=== PATIENT | female | born 1980 | race Hispanic/Latino ===

== ENCOUNTER 2020-08-05 15:35 | Outpatient (CLI) | payer OTHER ==
--- NOTE | 2020-08-05 16:33 | ULT ---
Obstetric sonogram HISTORY: evaluation. Third trimester gestation. FINDINGS: Multiple transabdominal sonographic views show single intrauterine gestation in cephalic pr esentation. Cervix is closed and 5.1 cm in length. Grade 1 placenta is anterior. Amniotic fluid index 21.5. Three-vessel cord shows a normal insertion. No gross intracranial abnormalities are apparent. Four-ch charissa heart motion at 136 bpm. Spine and kidneys are intact as visualized. Measurements are as follows: Biparietal diameter 34 weeks 4 days Head circumference 34 weeks 5 days Abdominal circumference 32 weeks 6 days Femur length 34 weeks 0 days [place] 73 percentile. Estimated date of delivery based on sonogram 09/15/2020. IMPRESSION : Single viable intrauterine gestation. Estimated gestational age 34 weeks 1 day. Polyhydramnios. MARTY 21.5.
== END 2020-08-05 15:36 | disposition home or self-care (01) ==
LOC: BICULT 15:35
PROVIDERS: ATTEND Nurse Practitioner
DX: O09.93 Supervision of high risk pregnancy, unspecified, third trimester (principal); Z3A.34 34 weeks gestation of pregnancy
CPT/HCPCS: 76805

== ENCOUNTER 2020-09-16 08:08 | Outpatient (CLI) | payer OTHER ==
[2020-09-16 21:24] LABS: SARS-CoV-2 MS2 Positive; SARS-CoV-2 N Gene Negative; SARS-CoV-2 S Gene Negative; SARS-CoV-2 by NAA Not Detected (NotDetected); SARS-CoV-2 orf1ab Negative
== END 2020-09-16 08:09 | disposition home or self-care (01) ==
LOC: LABBT 08:08
PROVIDERS: ATTEND Family Medicine
DX: Z20.828 Contact with and (suspected) exposure to other viral communicable diseases (principal)
CPT/HCPCS: 87635; U0003

== ENCOUNTER 2020-09-20 19:30 | Inpatient (IN) | payer MEDICAID, OTHER, SELFPAY ==
[2020-09-20] MEDS ORDERED: Carboprost 250 MCG/ML AMP IM PRN (21:56)
[2020-09-20] MEDS ORDERED: Diphenoxylate HCl/Atropine Tablet PO PRN (21:56)
[2020-09-20] MEDS ORDERED: Lidocaine 1% (PF) 30 ML VIAL SC PRN (21:56)
[2020-09-20] MEDS ORDERED: Ibuprofen 800 MG TAB PO PRN (21:56)
[2020-09-20] MEDS ORDERED: Misoprostol 100 MCG TAB PO SCH (21:56)
[2020-09-20] MEDS ORDERED: hydrALAZINE 20 MG/ML VIAL SLOW IVP PRN (21:56)
[2020-09-20] MEDS ORDERED: Methylergonovine 0.2 MG/ML VIAL IM PRN (21:56)
[2020-09-20] MEDS ORDERED: Lactated Ringer's 1,000 ML IV SCH (21:56)
[2020-09-20] MEDS ORDERED: NS / Oxytocin 40 units/1000ml 1,000 ML IV PRN (21:56)
[2020-09-20] MEDS ORDERED: HYDROcodone/Acetaminophen 5/325 mg Tablet PO PRN (21:56)
[2020-09-20] MEDS ORDERED: Butorphanol Tartrate 1 MG/ML VIAL SLOW IVP PRN (21:56)
[2020-09-20] MEDS ORDERED: Ondansetron PF 4 MG/2 ML Vial IVP PRN (21:56)
[2020-09-20] MEDS ORDERED: Misoprostol 200 MCG TAB PR PRN (21:56)
[2020-09-20] MEDS ORDERED: Promethazine HCl 25 MG/ML VIAL IM PRN (21:56)
[2020-09-20 21:57] VITALS: BMI 31.1
[2020-09-20 22:25] LABS: Hemoglobin 12.4 g/dL (12.0-16.0); Mean Corpuscular HGB CONC 33.7 g/dL (32.0-36.0); Mean Corpuscular Hemoglobin 30.9 pg (27.0-31.0); Mean Corpuscular Volume 91.7 fL (78.0-98.0); Mean Platelet Volume 9.3 fL (7.4-10.4); Platelet Count 222 thou/uL (130-400); Red Blood Cell (RBC) Count 4.02 mill/uL (4.20-5.40); White Blood Cell (WBC) Count 10.6 thou/uL (4.8-10.8)
[2020-09-20] MEDS ORDERED: NS w/ Oxytocin 30 units 500 ML IV PRN (22:35)
[2020-09-20] MEDS ORDERED: Penicillin G Potassium 5 MILL.UNITS in Sodium Chloride 0.9% 100 ML IVPB SCH (22:45)
[2020-09-20 23:12] LABS: Syphilis Antibody Nonreactive (Nonreactive); Syphilis Antibody Index 0.03 S/CO (<1.00 Non-Reactive)
[2020-09-21 01:46] LABS: HBSAg Index 0.16 S/CO (0-0.99); Hep B Surf Ag Non-Reactive S/CO (NonReactive)
[2020-09-21] MEDS ORDERED: Penicillin G 2.5 MILL.units 2.5 MILL.UNITS in Premix Bag 1 BAG IVPB SCH (03:00)
[2020-09-21] MEDS ORDERED: Ondansetron PF 4 MG/2 ML Vial IVP PRN (04:31)
[2020-09-21] MEDS ORDERED: NS / Oxytocin 40 units/1000ml 1,000 ML IV SCH (04:31)
[2020-09-21] MEDS ORDERED: diphenhydrAMINE 25 MG CAP PO PRN (04:31)
[2020-09-21] MEDS ORDERED: Milk Of Magnesia 30 ML UDCUP PO PRN (04:31)
[2020-09-21] MEDS ORDERED: hydrALAZINE 20 MG/ML VIAL SLOW IVP PRN (04:31)
[2020-09-21] MEDS ORDERED: Bisacodyl 10 MG SUPP PR PRN (04:31)
[2020-09-21] MEDS ORDERED: Promethazine HCl 25 MG/ML VIAL IM PRN (04:31)
[2020-09-21] MEDS ORDERED: Lanolin Ointment 7 GM TUBE TOP PRN (04:31)
[2020-09-21] MEDS ORDERED: Benzocaine-Menthol 82.5 ML CAN TOP PRN (04:31)
[2020-09-21] MEDS ORDERED: HYDROcodone/Acetaminophen 5/325 mg Tablet PO PRN ×2 (04:31)
[2020-09-21] MEDS: Ibuprofen 800 MG TAB PO SCH ×3 (06:03→20:56)
[2020-09-21] MEDS: Ferrous Sulfate 325 MG TAB PO SCH ×2 (07:43→16:16)
[2020-09-21] MEDS: Docusate Calcium (SURFAK) 240 MG CAP PO SCH ×2 (08:22→20:56)
[2020-09-21] MEDS: Prenatal Vitamin 1 TAB PO SCH (08:22)
[2020-09-21] MEDS ORDERED: Adacel (T-DAP) 0.5 ML SYRINGE IM ONE (09:00)
[2020-09-22] MEDS: Ibuprofen 800 MG TAB PO SCH (05:17)
[2020-09-22 08:13] VITALS: BP 100/59; TEMP 97.9
[2020-09-22] MEDS: Prenatal Vitamin 1 TAB PO SCH (08:56)
[2020-09-22] MEDS: Docusate Calcium (SURFAK) 240 MG CAP PO SCH (08:56)
[2020-09-22] MEDS: Ferrous Sulfate 325 MG TAB PO SCH (08:56)
== END 2020-09-22 13:25 | disposition home or self-care (01) | DRG 807 ==
LOC: L&D 21:26 → 3SW 09-21 05:10
PROVIDERS: ADMIT Family Medicine; ATTEND Family Medicine
PROC: 10E0XZZ Delivery of Products of Conception, External Approach (ICD-10-PCS; principal; 2020-09-21)
PROC: 10907ZC Drainage of Amniotic Fluid, Therapeutic from Products of Conception, Via Natural or Artificial Opening (ICD-10-PCS; 2020-09-21)
DX: O24.420 Gestational diabetes mellitus in childbirth, diet controlled (principal); Z37.0 Single live birth; Z3A.39 39 weeks gestation of pregnancy; E03.9 Hypothyroidism, unspecified; O99.284 Endocrine, nutritional and metabolic diseases complicating childbirth; Z79.890 Hormone replacement therapy
CPT/HCPCS: 36415; 85027; 86780; 86850; 86900; 86901; 87340; 90715; J2590